=== PATIENT | female | born 1975 | race Two or more races ===

== ENCOUNTER 2017-12-21 08:49 | Emergency (ER) | payer OTHER ==
[~2017-12-21] VITALS: Ht 154.9 cm; Wt 91.2 kg
[2017-12-21 08:57] VITALS: BP 140/62; Ht 154.9 cm; Wt 91.2 kg
== END 2017-12-21 09:45 | disposition home or self-care (01) ==
LOC: ED 08:49
DX: M54.5 Low back pain (principal); I10 Essential (primary) hypertension
CPT/HCPCS: J1885

== ENCOUNTER 2018-09-05 09:32 | Inpatient (IN) | payer OTHER ==
[~2018-09-05] VITALS: Ht 154.9 cm; Wt 74.9 kg
[2018-09-05 09:36] VITALS: Ht 154.9 cm; Wt 74.9 kg
--- NOTE | 2018-09-05 10:10 | NUR ---
PATIENT PRESENTS TO ED WITH C/O ABDOMINAL PAIN AND DIARHEA WITH NAUSEA AND VOMITTING FOR THE PAST 4 DAYS. STS THAT WHEN SHE URINATES, SHE EXPERIENCES PAIN. STS THE ABDOMINAL PAIN STARTS FROM THE UMBILICAL REGION AND RADIATES TO BILATERAL LOWER BACK. PATIENT WAS ABLE TO AMBULATE TO BED WITH STEADY GAIT NOTED. AT BEDSIDE. AWAITING MSE
--- NOTE | 2018-09-05 10:59 | NUR ---
MEDS GIVEN PER ORDERS PT A/AX4 SHE WILL INFORM ME IF THE MEDS MAKE HER FEEL BETTER
[2018-09-05 11:39] LABS: CALCIUM 8.7 mg/dL (8.5-10.1); CARBON DIOXIDE 25.1 mmol/L (21-32); CHLORIDE SERUM 102 mmol/L (98-107); CREATININE SERUM 0.6 mg/dL (0.6-1.0); GFR1 > 60 mL/min; GLUCOSE SERUM 106 mg/dL (74-106); SODIUM SERUM 139 mmol/L (136-145)
[2018-09-05 11:43] LABS: PLATELET COUNT 267 x10^3mcL (130-400); RED CELL DISTRIBUTION WIDTH 13.8 % (11.5-14.5)
--- NOTE | 2018-09-05 11:43 | NUR ---
PATIENT SENT TO CT
[2018-09-05 11:48] LABS: BASOPHIL % 0 % (0-2); T3 TOTAL 0.78 ng/mL
[2018-09-05 11:50] LABS: ALBUMIN 2.9 g/dL (3.4-5.0); ALKALINE PHOSPHATASE 72 U/L (46-116); ALT/SGPT 16 U/L (14-59); AST/SGOT 6 U/L (15-37); BILIRUBIN TOTAL 1.13 mg/dL (0.20-1.00); TOTAL PROTEIN, SERUM 7.8 g/dL (6.4-8.2)
[2018-09-05 11:51] LABS: CK-MB < 0.5 ng/mL (0-3.6); CREATINE KINASE 36 U/L (26-192)
[2018-09-05 12:01] LABS: C REACTIVE PROTEIN < 0.2 mg/dL (<=0.9)
[2018-09-05 12:14] LABS: microscopic required? YES; urine erythrocyte 1+ (NEGATIVE)
[2018-09-05 12:26] LABS: FREE T4 1.08 ng/dL (0.76-1.46); FREE THYROXINE INDEX 2.2 ug/dL (1.4-4.5); T4(THYROXINE) 6.8 ug/dL (4.7-13.3)
--- NOTE | 2018-09-05 12:33 | NUR ---
PT RESTING AT BEDSIDE IN NAD
[2018-09-05] MEDS ORDERED: PRINIVIL10 MG PO (12:42)
[2018-09-05 12:59] LABS: ERYTHROCYTE SED RATE 87 mm/hr (0-20)
--- NOTE | 2018-09-05 13:31 | NUR ---
CALLED RN JULY TO GIVE REPORT. NURSE STS TO CALL BACK IN 5 MINUTES
--- NOTE | 2018-09-05 13:52 | NUR ---
REPORT GIVEN TO NATAN MCDOWELL TO ASSUME CARE OF THE PT.
[2018-09-05 14:17] VITALS: BP 112/71
--- NOTE | 2018-09-05 14:20 | NUR ---
RECEIVED PT FROM ED VIA LD. ORIENTED PT TO ROOM AND SURROUNDINGS. IV NOTED TO LAC PATENT AND INTACT. TELE 21 PLACED ON PT READING NSR. INSTRUCTED PT ON THE USE OF CALL LIGHT FOR ASSISTANCE. ENDORSED PT TO PRIMARY NURSE JULY
[2018-09-05 16:26] VITALS: BP 103/61
[2018-09-05 16:55] LABS: CHOLESTEROL/HDL RATIO 3.2; MAGNESIUM 2.3 mg/dL (1.8-2.4)
--- NOTE | 2018-09-05 18:51 | NUR ---
NO ACUTE CHANGES AT THIS TIME, NO ACUTE RESP DISTRESS OR SOB NOTED. REMAINS NPO AT THIS TIME, IV TO THE LAC INFUSING AT 100ML/HR, NO REDNESS OR SWELLING NOTE. PT DENIES ANY ABD PAIN OR DISCOMFORT. AT BEDSIDE WILL ENDORSE TO INCOMING RN.
[2018-09-05 19:53] LABS: AMPHETAMINE QUAL UR NONE DETECTED (See below)
--- NOTE | 2018-09-05 20:31 | NUR ---
PT CURRENTLY RESTING IN BED, NO ACUTE DISTRESS. A/O X4. NO TELE, MED/SURG. DENIES CHEST PAIN. PULSES PALPABLE IN ALL EXTREMITIES, NO EDEMA NOTED. LUNG SOUNDS CTA BILATERALLY, DENIES SOB. BOWEL SOUNDS ACTIVE, LAST BM 09/05/18, DIARRHEA, ABD PAIN 07/20, WILL MEDICATE PER EMAR. VOIDING WELL. AMBULATORY. SKIN INTACT. IV PATENT AND INTACT. BED IN LOWEST POSITION, SIDE RAILS UP X2, CALL LIGHT WITHIN REACH. WILL CONTINUE TO MONITOR.
[2018-09-05 21:11] VITALS: BP 107/59
--- NOTE | 2018-09-05 21:57 | NUR ---
PT RECEIVED FROM TI GAMA. PT A/O X4, ALBANIAN SPEAKING, ABLE TO MAKE NEEDS KNOWN. SPOUSE AT BEDSIDE. MED-SURG, DENIES ANY CP/PRESSURE. PULSES PALPABLE, NO EDEMA PRESENT. BREATHING IS EVEN AND UNLABORED ON RA, NO RESP DISTRESS NOTED. ABD SOFT AND NONDISTENDED, DENIES N/V. VOIDS FREELY, BRP. AMBULATORY WTIH STEADY GAIT. SKIN IS WARM AND DRY, INTACT. PT ADMITS TO MILD ABD PT, PT STATES PAIN IS TOLERABLED. IVF INFUSING WELL TO LAC, SITE WNL. NO ACUTE DISTRESS NOTED. BED IN LOWEST SETTING, SIDE RAILS UP X2, CALL LIGHT WITHIN REACH. WILL CONT TO MONITOR.
--- NOTE | 2018-09-05 22:16 | NUR ---
ENDORSED CARE TO [place] GAMA.
--- NOTE | 2018-09-06 00:50 | NUR ---
PT RESTING IN BED, AWAKE AND ALERT. FAMILY AT BEDSIDE. BREATHING IS EVEN AND UNLABORED, NO RESP DISTRESS NOTED. PT DENIES HAVING ANY PAIN AT THIS TIME. IVF INFUSING WELL, SITE WNL. NO ACUTE DISTRESS NOTED. CALL LIGHT WITHIN REACH. WILL CONT TO MONITOR.
--- NOTE | 2018-09-06 05:27 | NUR ---
PT SLEPT WELL THROUGHOUT THE EVENING. BREATHING IS EVEN AND UNLABORED, NO RESP DISTRESS NOTED. PT ADMITS TO MINIMAL ABD PAIN, OFFERED PT PAIN MEDS, PT REFUSED PAIN MEDS AT THIS TIME. PT REMAINS NPO EXCEPT MEDS, NPO SIGN POSTED. NO ACUTE CHANGES ENCOUNTERED DURING SHIFT. ALL NEEDS MET AND ANTICIPATED. PT COMPLIANT WITH NURSING CARE. SPOUSE AT BEDSIDE. CALL LIGHT WITHIN REACH. WILL ENDORSE CARE TO AM NURSE.
[2018-09-06 06:00] VITALS: BP 108/68
--- NOTE | 2018-09-06 07:24 | NUR ---
PT IN NO ACUTE DISTRESS. CONTINUITY OF CARE ENDORSED TO JULY GAMA. ALL QUESTIONS AND CONCERNS ADDRESSED.
--- NOTE | 2018-09-06 07:30 | NUR ---
PT ENDORSE TO ME THIS MORNING, PT SITTING UP IN CHAIR/ AA/O X4/ BREATHING EVEN AND UNLABORED ON RA, NO ACUTE RESP DISTRESS OR SOB NOTED. MEDSURG. DENIES ANY CP OR PRESSURE. BOWEL SOUNDS ACTIVE IN ALL FOUR QUADS, DENIES ANY ABD PAIN OR DISCOMFORT. PT REMAINS NPO SINCE YESTERDAY. PT IS ASKING IF SHE CAN EAT THIS AM, DR. DEIDRA MEJIA. AMB, VOIDS FREELY. IV TO THE LAC INTACT AND PATENT, INFUSING AT 100ML/HR, NO REDNESS OR SWELLING NOTED TO SITE. ALLL LIGHT IN REACH. WILL CONTINUE TO MONITOR.
[2018-09-06 08:18] VITALS: BP 107/65
[2018-09-06 12:11] VITALS: BP 118/59
[2018-09-06 17:05] VITALS: BP 107/61
--- NOTE | 2018-09-06 17:17 | NUR ---
PT C/O ABD PAIN 5/10,MEDICATED PER EMAR. TOLERATED 100% OF FULL LIQ LUNCH WITH OUT N/V NOTED. WILL CONTINUE TO MONITOR, AT BEDSIDE.
--- NOTE | 2018-09-06 18:28 | NUR ---
NO ACUTE CHANGES AT THIS TIME, NO ACUTE RESP DISTRESS OR SOB NOTED. PT REMAINS ON FULL LIQ DIET, TOLERATED 100% OF DINNER/ NO NV NOTED. PT DENIES ANY ABD PAIN AT THIS TIME, MEDICATED PER EMAR. WILL ENDORSE TO INCOMING RN.
--- NOTE | 2018-09-06 19:11 | NUR ---
RECEIVED PT FROM PREVIOUS SHIFT. AAO. GRENADIAN SPEAKING. FOLLOWS COMMANDS. SPEECH CLEAR. MEDSURG. DENIES CP. NO S/S ACUTE DISTRESS. BREATHING E/U ON RA. DENIES N/V. DENIES ABD PAIN. IV SITE CDI, NO ERYTHEMA OR EDEMA, IVF INFUSING WELL. AT BEDSIDE. CALL LIGHT WITHIN REACH, SAFETY MEASURES IN PLACE, WILL CONTINUE TO MONITOR.
[2018-09-06 20:47] VITALS: BP 100/63
--- NOTE | 2018-09-07 01:05 | NUR ---
PT RESTING IN BED. BREATHING E/U. NO S/S ACUTE DISTRESS. NO INDICATIONS OF PAIN NOTED. CALL LIGHT WITHIN REACH. SAFETY MEASURES IN PLACE. WILL CONTINUE TO MONITOR.
--- NOTE | 2018-09-07 05:30 | NUR ---
PT HAD 1X EPISODE OF CLEAR, EMESIS ABOUT 10CC. PT ALSO C/O 5/10 ABD PAIN, WILL MEDICATE PER EMAR.
[2018-09-07 05:37] VITALS: BP 102/57
--- NOTE | 2018-09-07 06:31 | NUR ---
STOOL CX AND CDIFF COLLECTED AND SENT TO LAB. PT DENIES BLOOD IN STOOL. SEMISOLID BROWN STOOL NOTED.
--- NOTE | 2018-09-07 07:21 | NUR ---
BEDSIDE REPORT GIVEN TO NATAN GIORDANO. ALL QUESTIONS AND CONCERNS ADDRESSED.
[2018-09-07 07:39] LABS: BASOPHIL % 0.3 % (0-2); PLATELET COUNT 331 x10^3mcL (130-400); RED CELL DISTRIBUTION WIDTH 13.6 % (11.5-14.5)
[2018-09-07 07:41] LABS: CALCIUM 8.6 mg/dL (8.5-10.1); CARBON DIOXIDE 28.7 mmol/L (21-32); CHLORIDE SERUM 102 mmol/L (98-107); CREATININE SERUM 0.6 mg/dL (0.6-1.0); GFR1 > 60 mL/min; GLUCOSE SERUM 100 mg/dL (74-106); MAGNESIUM 1.9 mg/dL (1.8-2.4); PHOSPHOROUS 3.8 mg/dL (2.5-4.9); POTASSIUM SERUM 3.1 mmol/L (3.5-5.1); SODIUM SERUM 139 mmol/L (136-145)
--- NOTE | 2018-09-07 07:45 | NUR ---
PATIENT A/OX4, ABLE TO MAKE NEEDS KNOWN/FOLLOW COMMANDS. DENIES HEADACHE OR CHEST PAIN. PERIEPHRAL PULSES PALPABLE, NO EDEMA NOTED. LUNGS CTA, NO RESP DISTRESS ON RA, BREATHING E/U. BOWEL SOUNDS ACTIVE, REPORTS LAST BM THIS MORNING LOOSE, DENIES ABD PAIN, ABD SOFT, REPORTS FEELING NAUSEAS AT TIMES NOT AT THIS TIME. REPORTS MILD DISCOMFRT UPON VOIDING W/ YELLOW CLEAR URINE. AMBULATES WITH STEADY GAIT. SKIN INTACT. IV ACCESS TO LAC SITE WNL NO REDNESS/SWELLING. CALL LIGHT WITHIN REACH. FAMILY AT BEDSIDE.
[2018-09-07 09:00] VITALS: BP 115/62
[2018-09-07 09:47] VITALS: BP 116/71
[2018-09-07 11:59] VITALS: BP 116/71
--- NOTE | 2018-09-07 12:48 | NUR ---
DISCHARGE INSTRUCTIONS AND PRESCRIPTION GIVEN, PATIENT AND FAMILY AT BEDSIDE VERBALIZED UNDERSTANDING. ALL QUESTIONS/CONCERNS ADDRESSED. IV DC'D CATH INTACT. LEAVING UNIT VIA WHEELCHAIR ACCOMPANIED BY BURNER TECHNICIAN.
== END 2018-09-07 12:48 | disposition home or self-care (01) | DRG 720 ==
LOC: ED 09:32 → MU 12:47
PROVIDERS: Specialist; ADMIT General Practice
DX: A41.9 Sepsis, unspecified organism (principal); E46 Unspecified protein-calorie malnutrition; K51.90 Ulcerative colitis, unspecified, without complications; K57.92 Diverticulitis of intestine, part unspecified, without perforation or abscess without bleeding; A09 Infectious gastroenteritis and colitis, unspecified; N30.90 Cystitis, unspecified without hematuria; E87.6 Hypokalemia; E66.9 Obesity, unspecified; I10 Essential (primary) hypertension; Z85.42 Personal history of malignant neoplasm of other parts of uterus; Z82.49 Family history of ischemic heart disease and other diseases of the circulatory system; Z68.31 Body mass index [BMI] 31.0-31.9, adult
CPT/HCPCS: 83880; 84439; 87046; 87046-59; G0378; J0696; J1885; J1956; J2405; J3490; J7030; J7060; Q0092